=== PATIENT | female | born 1940 | race Caucasian/White ===

== ENCOUNTER 2023-08-12 08:44 | Day surgery (SDC) | payer MEDICARE, BC ==
[2023-08-11 13:29] VITALS: BMI 22.6
[2023-08-12] MEDS ORDERED: Iopamidol 370 76% 100 ML VIAL ONE (09:05)
[2023-08-12] MEDS ORDERED: Vancomycin (BATCH) 1.5 GRAM/300 ML BAG ONE (09:22)
[2023-08-12] MEDS ORDERED: Gentamicin 80 MG/2 ML VIAL ONE (10:29)
[2023-08-12] MEDS ORDERED: CEFAZOLIN 2 GM VIAL ONE (10:29)
[2023-08-12] MEDS ORDERED: Dexmedetomidine 200 MCG/2 ML VIAL ONE (10:29)
[2023-08-12] MEDS ORDERED: Midazolam HCl 2 mg/2 ml Vial ONE (10:32)
[2023-08-12] MEDS ORDERED: fentaNYL 50 mcg/mL 1 mL Vial ONE ×2 (10:32→12:53)
[2023-08-12] MEDS ORDERED: Lidocaine 1% PF 5 ML VIAL ONE (10:45)
[2023-08-12] MEDS ORDERED: PHENYLEPHRINE-NS 100 MCG/ML 10 ML SYRINGE ONE (10:45)
[2023-08-12] MEDS ORDERED: Flecainide 50 MG TAB PO SCH (14:45)
== END 2023-08-12 17:00 | disposition home or self-care (01) ==
LOC: SDC 08:44
PROVIDERS: ATTEND Internal Medicine Cardiovascular Disease
PROC: 0JH606Z Insertion of Pacemaker, Dual Chamber into Chest Subcutaneous Tissue and Fascia, Open Approach (ICD-10-PCS; principal; 2023-08-12)
DX: I48.91 Unspecified atrial fibrillation (principal); I49.5 Sick sinus syndrome; I47.19 Other supraventricular tachycardia; K21.9 Gastro-esophageal reflux disease without esophagitis; I11.0 Hypertensive heart disease with heart failure; I50.32 Chronic diastolic (congestive) heart failure; E78.00 Pure hypercholesterolemia, unspecified; E03.9 Hypothyroidism, unspecified; I71.20 Thoracic aortic aneurysm, without rupture, unspecified; Z90.49 Acquired absence of other specified parts of digestive tract; Z90.89 Acquired absence of other organs; Z90.710 Acquired absence of both cervix and uterus; Z98.890 Other specified postprocedural states; Z79.899 Other long term (current) drug therapy; Z79.01 Long term (current) use of anticoagulants; Z79.890 Hormone replacement therapy; Z92.89 Personal history of other medical treatment
CPT/HCPCS: 33208; 71045; 93005; C1785; C1894; C1898 ×2; J3010; J3370; J1580; J2250; Q9967